=== PATIENT | female | born 1950 | race Caucasian/White ===

== ENCOUNTER 2017-02-13 11:04 | Outpatient (CLI) | payer BC ==
--- NOTE | 2017-02-13 11:55 | MMO ---
BILATERAL SCREENING MAMMOGRAM: DATE: 02/13/17 HISTORY: 66-year-old female for screening mammography. COMPARISON: 07/01/11, 06/07/10. FINDINGS: Bilateral MLO and CC views of the breasts show scattered fibroglandular breast tissue. There is a be nign-appearing calcification in the right breast. There is no evidence of suspicious mass, suspiciou s cluster of microcalcifications, or area of architectural distortion. Interpretation of this mammogram was performed with the assistance of computer-aided detection. IMPRESSION: BIRADS 2: Benign Finding(s) Annual screening mammography is recommended. POS: [facility]
== END 2017-02-13 11:05 | disposition home or self-care (01) ==
LOC: SCSMAMMO 11:04
PROVIDERS: ATTEND Obstetrics & Gynecology
DX: Z12.31 Encounter for screening mammogram for malignant neoplasm of breast (principal)
CPT/HCPCS: 77067; G0202